=== PATIENT | female | born 2005 | race African-American/Black ===

== ENCOUNTER 2023-03-29 12:25 | Emergency (ER) | payer MEDICAID, OTHER ==
[~2023-03-29] VITALS: Ht 152.4 cm; Wt 111.1 kg
[2023-03-29 12:34] VITALS: O2SAT 100
[2023-03-29] MEDS: CEFTRIAXONE SODIUM 500MG VIAL IM ONE (14:15)
[2023-03-29] MEDS ORDERED: DOXY100T2 MT (15:01)
[2023-03-29 15:12] LABS: CLARITY URINE CLOUDY (CLEAR); COLOR URINE DARK YELLOW (YELLOW); GLUCOSE URINE NEGATIVE (NEGATIVE); KETONES URINE 2+ (NEGATIVE); LEUKOCYTE ESTERASE URINE 2+ (NEGATIVE); NITRITE URINE NEGATIVE (NEGATIVE); OCCULT BLOOD URINE NEGATIVE (NEGATIVE); PH URINE 6.5 (4.5-8.0); PROTEIN URINE 1+ (NEGATIVE); SPECIFIC GRAVITY URINE 1.033 (1.005-1.030)
[2023-03-29 15:39] LABS: RBC URINE 0-2 /hpf (0-2); SQUAMOUS EPITHELIAL CELL URINE 2+ /lpf (RARE/1+)
[2023-03-29 15:40] LABS: BACTERIA URINE 1+
[2023-03-29] MEDS: CEFTRIAXONE SODIUM 500MG VIAL IM NR (16:00)
[2023-03-29] MEDS ORDERED: METR70GE5 VG (16:12)
[2023-03-29 18:37] VITALS: BP 137/92; PULSE 96; RESP 20; TEMP 98.6
[2023-04-01 04:07] LABS: CHLAMYDIA TRACHOMATIS NAA Negative (Negative); NEISSERIA GONORRHOEAE NAA Negative (Negative)
== END 2023-03-29 18:42 | disposition home or self-care (01) ==
LOC: ER 13:33
DX: N89.8 Other specified noninflammatory disorders of vagina (principal); Z13.9 Encounter for screening, unspecified
CPT/HCPCS: 87491; 87591; 81003; 81025; 86592; 86593; 96372; 99284; 86780; J0696; Z7610 ×3

== ENCOUNTER 2024-07-11 00:14 | Emergency (ER) | payer MEDICAID ==
[~2024-07-11] VITALS: Ht 165.1 cm; Wt 73.0 kg
[~2024-07-11 00:14] MED LIST: DOXY100T2 MT; METR70GE27 VG
[2024-07-11 00:20] VITALS: O2SAT 98
[2024-07-11] MEDS: ONDANSETRON HCL 4MG/2ML INJ IV ONE (01:57)
[2024-07-11 01:58] LABS: CHLORIDE 108 mEq/L (98-107); POTASSIUM 3.8 mEq/L (3.5-5.1); SODIUM 144 mEq/L (136-145)
[2024-07-11 01:59] LABS: CALCIUM 9.1 mg/dL (8.7-10.4); CARBON DIOXIDE 23 mEq/L (21-32)
[2024-07-11 02:04] LABS: CREATININE 0.8 mg/dL (0.6-1.0); ETHANOL BLOOD 264 mg/dL (<10); GLUCOSE 97 mg/dL (70-105); UREA NITROGEN BLOOD 10 mg/dL (9-23)
[2024-07-11 02:06] LABS: ALANINE AMINOTRANSFERASE 18 IU/L (10-49); ALBUMIN 4.8 g/dL (3.2-4.8); ASPARTATE AMINOTRANSFERASE 26 IU/L (<34); BILIRUBIN TOTAL 0.4 mg/dL (0.1-1.0); PROTEIN TOTAL 8.2 g/dL (6.0-8.3)
[2024-07-11 02:29] LABS: HCG SCREEN NEGATIVE
[2024-07-11 02:52] LABS: BASOPHILS % 0.4 % (0.0-2.0); EOSINOPHILS % 0.1 % (0.0-5.0); HEMATOCRIT. 35.4 % (36.0-48.0); HEMOGLOBIN. 11.8 g/dL (12.0-16.0); LYMPHOCYTES % 19.2 % (20.0-50.0); MEAN CORPUSCULAR HEMOGLOBIN 31.3 pg (28.0-32.0); MEAN CORPUSCULAR HGB CONC 33.4 g/dL (31.0-37.0); MEAN CORPUSCULAR VOLUME 93.6 fL (81.0-99.0); MEAN PLATELET VOLUME 8.4 fl (7.4-10.4); MONOCYTES % 7.2 % (2.0-8.0); NEUTROPHILS % 73.1 % (40.0-76.0); PLATELET 248 x1000/uL (130-400); RED BLOOD CELL COUNT 3.78 mill/uL (4.2-5.4); RED CELL DISTRIBUTION WIDTH 14.6 % (11.6-14.6); WHITE BLOOD COUNT 5.5 x1000/uL (4.5-11.0)
[2024-07-11 03:25] VITALS: BP 121/84; PULSE 97; RESP 17; TEMP 36.8; O2SAT 100
== END 2024-07-11 03:27 | disposition left against medical advice (07) ==
LOC: ER 00:21
DX: S00.33XA Contusion of nose, initial encounter (principal); F10.10 Alcohol abuse, uncomplicated; X58.XXXA Exposure to other specified factors, initial encounter; Y93.89 Activity, other specified; Y92.89 Other specified places as the place of occurrence of the external cause; Y99.8 Other external cause status; Y90.9 Presence of alcohol in blood, level not specified
CPT/HCPCS: 80053; 80320; 82962; 84703; 85025; 36415; 71045; 70450; 70486; 72125; 93005; 96374; 99285; J2405; G0480

== ENCOUNTER 2024-10-22 14:31 | Emergency (ER) | payer MEDICAID ==
[~2024-10-22] VITALS: Ht 157.5 cm; Wt 65.0 kg
[2024-10-22 14:53] VITALS: TEMP 37; O2SAT 100
[2024-10-22] MEDS: CEFTRIAXONE SODIUM 500MG VIAL IM ONE (16:35)
[2024-10-22 16:54] LABS: CLARITY URINE CLOUDY (CLEAR); COLOR URINE YELLOW (YELLOW); GLUCOSE URINE NEGATIVE (NEGATIVE); KETONES URINE NEGATIVE (NEGATIVE); NITRITE URINE NEGATIVE (NEGATIVE); OCCULT BLOOD URINE NEGATIVE (NEGATIVE); PH URINE 7.0 (4.5-8.0); PROTEIN URINE 1+ (NEGATIVE); SPECIFIC GRAVITY URINE 1.022 (1.005-1.030)
[2024-10-22 16:55] LABS: LEUKOCYTE ESTERASE URINE 2+ (NEGATIVE); UROBILINOGEN URINE 1.0 E.U./dL (0.2-1.0)
[2024-10-22 17:34] LABS: BACTERIA URINE 2+; RBC URINE 0-2 /hpf (0-2); SQUAMOUS EPITHELIAL CELL URINE 1+ /lpf (RARE/1+); WBC URINE 25-50 /hpf (0-2)
[2024-10-22] MEDS ORDERED: DOXY100C5 MT (17:45)
[2024-10-22] MEDS ORDERED: ACYC200C31 PO (17:49)
[2024-10-22 18:11] VITALS: BP 121/75; PULSE 75; RESP 16; O2SAT 99
[2024-10-25 04:08] LABS: *HSV 1 DNA PCR Negative (Negative); *HSV 2 DNA PCR Positive (Negative); CHLAMYDIA TRACHOMATIS NAA Negative (Negative); NEISSERIA GONORRHOEAE NAA Negative (Negative)
== END 2024-10-22 18:13 | disposition home or self-care (01) ==
LOC: ER 14:31
DX: R10.2 Pelvic and perineal pain (principal); Z11.3 Encounter for screening for infections with a predominantly sexual mode of transmission; Z79.624 Long term (current) use of inhibitors of nucleotide synthesis
CPT/HCPCS: 99283; 87491; 87529 ×2; 87591; 81003; 87086; 87186; 87210; 87077; 96372; J0696

== ENCOUNTER 2025-01-07 19:14 | Emergency (ER) | payer MEDICAID ==
[~2025-01-07] VITALS: Ht 149.9 cm; Wt 69.0 kg
[~2025-01-07 19:14] MED LIST changes: +ACYC-58 PO; +DOXY100C5 MT; +VALA100044 MT
[2025-01-07 19:42] VITALS: TEMP 36.8; O2SAT 99
[2025-01-07 23:34] VITALS: TEMP 98.2
[2025-01-07] MEDS: ACETAMINOPHEN 500MG TABLET PO ONE (23:34)
[2025-01-08] MEDS ORDERED: NAPR-1176 MT (00:34)
[2025-01-08 01:53] VITALS: BP 121/72; PULSE 66; RESP 18; O2SAT 100
== END 2025-01-08 01:54 | disposition home or self-care (01) ==
LOC: ER 19:14
DX: S00.83XA Contusion of other part of head, initial encounter (principal); Z79.624 Long term (current) use of inhibitors of nucleotide synthesis; Z79.1 Long term (current) use of non-steroidal anti-inflammatories (NSAID); Z79.899 Other long term (current) drug therapy; Y04.0XXA Assault by unarmed brawl or fight, initial encounter; X58.XXXA Exposure to other specified factors, initial encounter; Y93.89 Activity, other specified; Y92.89 Other specified places as the place of occurrence of the external cause; Y99.8 Other external cause status
CPT/HCPCS: 70110; 99283

== ENCOUNTER 2025-01-10 12:27 | Emergency (ER) | payer MEDICAID ==
[~2025-01-10] VITALS: Ht 149.9 cm; Wt 73.0 kg
[~2025-01-10 12:27] MED LIST changes: +NAPR-1176 MT
[2025-01-10 12:36] VITALS: TEMP 37.1; O2SAT 100
[2025-01-10 14:04] LABS: BASOPHILS % 0.7 % (0.0-2.0); EOSINOPHILS % 0.7 % (0.0-5.0); HEMATOCRIT. 35.5 % (36.0-48.0); HEMOGLOBIN. 11.6 g/dL (12.0-16.0); LYMPHOCYTES % 30.3 % (20.0-50.0); MEAN PLATELET VOLUME 8.6 fl (7.4-10.4); MONOCYTES % 9.6 % (2.0-8.0); NEUTROPHILS % 58.7 % (40.0-76.0); PLATELET 243 x1000/uL (130-400); RED BLOOD CELL COUNT 3.81 mill/uL (4.2-5.4); RED CELL DISTRIBUTION WIDTH 14.8 % (11.6-14.6)
[2025-01-10 14:19] LABS: CREATININE 0.8 mg/dL (0.6-1.0)
[2025-01-10 14:20] LABS: UREA NITROGEN BLOOD 11 mg/dL (9-23)
[2025-01-10 16:10] VITALS: BP 130/73; PULSE 72; RESP 16; O2SAT 100
== END 2025-01-10 16:10 | disposition home or self-care (01) ==
LOC: ER 12:48
DX: R51.9 Headache, unspecified (principal); Z79.899 Other long term (current) drug therapy
CPT/HCPCS: 36415; 80048; 85025; 99284

== ENCOUNTER 2025-03-12 09:08 | Emergency (ER) | payer MEDICAID ==
[~2025-03-12] VITALS: Ht 160 cm; Wt 75.0 kg
[2025-03-12 09:15] VITALS: O2SAT 97
[2025-03-12 09:29] VITALS: BP 127/79; PULSE 98; RESP 18; TEMP 37.1; O2SAT 99
== END 2025-03-12 10:37 | disposition home or self-care (01) ==
LOC: ER 09:08
DX: U07.1 COVID-19 (principal); J06.9 Acute upper respiratory infection, unspecified; Z91.048 Other nonmedicinal substance allergy status
CPT/HCPCS: 81025; 87426; 99283